=== PATIENT | female | born 1995 ===

== ENCOUNTER → 2017-05-12 | Outpatient (CLI) | payer MEDICAID ==
[~2017-05-12] MED LIST: RT-ALBUINH IH
--- NOTE | 2017-05-12 13:19 | Diagnostic Imaging Report ---
PROCEDURE: CT head without contrast. TECHNIQUE: Multiple contiguous axial images were obtained through the brain without the use of intravenous contrast. INDICATION: Headache after concussion. COMPARISON: None available. FINDINGS: No hyperdense hemorrhage, hydrocephalus, or midline shift. There is an ovoid mass in the middle cranial fossa on the right, located anterior to the temporal lobe and measuring 3.0 x 1.3 cm. No evidence of acute territorial infarct. No vasogenic edema adjacent to the right middle cranial fossa mass. No acute skull fracture. Paranasal sinuses and mastoid air cells are clear. IMPRESSION: 1. No intracranial hemorrhage or skull fracture. 2. Incidental note of a benign-appearing arachnoid cyst in the right middle cranial fossa. This results in no significant mass effect and a nonemergent MRI can be performed to confirm this finding. Dictated by: Dictated on workstation # [id number]
== END ==
LOC: RAD 12:55
PROVIDERS: ATTEND Internal Medicine
DX: S06.0X9A Concussion with loss of consciousness of unspecified duration, initial encounter (principal)
CPT/HCPCS: 70450

== ENCOUNTER 2018-05-27 15:36 | Day surgery (SDC) | payer MEDICAID ==
[~2018-05-27] VITALS: Ht 172.7 cm; Wt 66.2 kg
[2018-05-27] MEDS ORDERED: CEPH500C PO (16:12)
[2018-05-27 16:17] VITALS: BP 126/82
[2018-05-27] MEDS: LACTATED RINGERS 1,000 ML IV PRN ×2 (16:25→19:07)
[2018-05-27 16:26] LABS: BASOPHILS % (AUTO) 0 % (0-10); EOSINOPHILS # (AUTO) 0.1 10^3/uL (0.0-0.3); EOSINOPHILS % (AUTO) 0 % (0-10); HEMATOCRIT 39 % (35-52); HEMOGLOBIN 13.4 G/DL (11.5-16.0); LYMPHOCYTES # (AUTO) 1.5 X 10^3 (1.0-4.0); LYMPHOCYTES % (AUTO) 9 % (12-44); MEAN CORPUSCULAR HEMOGLOBIN 31 PG (25-34); MEAN CORPUSCULAR HGB CONC 34 G/DL (32-36); MEAN CORPUSCULAR VOLUME 90 FL (80-99); MEAN PLATELET VOLUME 9.1 FL (7.4-10.4); MONOCYTES # (AUTO) 1.5 X 10^3 (0.0-1.0); MONOCYTES % (AUTO) 9 % (0-12); NEUTROPHILS % (AUTO) 81 % (42-75); PLATELET COUNT 309 10^3/uL (130-400); RED CELL DISTRIBUTION WIDTH 14.8 % (10.0-14.5); WHITE BLOOD COUNT 16.1 10^3/uL (4.3-11.0)
[2018-05-27] MEDS ORDERED: metroNIDAZOLE 500MG/100ML IVPB 100 ML IV ONE (16:30)
[2018-05-27] MEDS ORDERED: LEVOFLOXACIN 250 MG/50 ML IVPB 50 ML IV ONE (16:30)
[2018-05-27] MEDS ORDERED: KETOROLAC 30 MG/ML VIAL IV ONE (16:30)
--- NOTE | 2018-05-27 16:44 | Progress Note-Pre Operative ---
Pre-Operative Progress Note H&P Reviewed The H&P was reviewed, patient examined and no changes noted. Date Seen by Provider: May 27, 2018 Time Seen by Provider: 16:43 Date H&P Reviewed: May 27, 2018 Time H&P Reviewed: 16:43 Pre-Operative Diagnosis: RIGHT BARTHOLIN ABSCESS ELMIRA GRANADO MD May 27, 2018 16:44
[2018-05-27] MEDS ORDERED: ONDANSETRON 4 MG/2 ML (SDV) Z0FRAN ONE ×2 (16:45→17:29)
[2018-05-27] MEDS ORDERED: DEXAMETHASONE 10 MG/ML (DECADRON) 1 ML VIAL ONE (16:45)
[2018-05-27] MEDS ORDERED: proPOfol 200 MG/20 ML (DIPRIVAN) VIAL IV ONE (16:45)
[2018-05-27] MEDS ORDERED: LIDOCAINE PF 2% 5 ML (XYLOCAINE) VIAL ONE (16:45)
[2018-05-27] MEDS ORDERED: KETOROLAC 30 MG/ML VIAL IVP ONE (16:45)
[2018-05-27] MEDS ORDERED: MEPERIDINE (DEMEROL) INJ 100 MG/ML IM ONE (16:45)
[2018-05-27] MEDS ORDERED: SEVOFLURANE (ULTANE) 15 ML INHAL SOLN ONE ×2 (16:45→17:22)
[2018-05-27] MEDS ORDERED: oxyCODONE/APAP 5/325MG (PERCOCET 5) TABLET PO PRN (16:45)
[2018-05-27] MEDS ORDERED: ONDANSETRON 4 MG/2 ML (SDV) Z0FRAN IVP PRN ×2 (16:45→17:45)
[2018-05-27] MEDS ORDERED: D5 LR IV SOLUTION 1,000 ML IV SCH (16:45)
[2018-05-27] MEDS ORDERED: PROMETHAZINE INJ 25 MG/ML (PHENERGAN) AMP IM ONE (16:45)
--- NOTE | 2018-05-27 16:45 | Progress Note-Post Operative ---
Post-Operative Progess Note Surgeon (s)/Principal Electrical Engineer (s) Surgeon ELMIRA GRANADO MD Principal Electrical Engineer: NONE Pre-Operative Diagnosis RIGHT BARTHOLIN ABSCESS Post-Operative Diagnosis Same with pathology ( culture results ) pending Procedure & Operative Findings Date of Procedure 05/27/18 Procedure Performed/Findings Marsupialization of right Bartholin abscess Anesthesia Type GETA Estimated Blood Loss Estimated blood loss (mL): Minimal Specimens/Packing Specimens Removed Culture of abscess cavity for aerobes and anaerobes Packing: None ELMIRA GRANADO MD May 27, 2018 16:45
[2018-05-27] MEDS ORDERED: MIDAZOLAM 2 MG/2 ML (VERSED) VIAL ONE (16:46)
[2018-05-27] MEDS ORDERED: fentaNYL INJECTION 100 MCG/2 ML AMP ONE ×2 (16:46→17:11)
[2018-05-27] MEDS ORDERED: OXYC1TAB87 PO (16:49)
[2018-05-27] MEDS ORDERED: CIPR500S2 PO (16:49)
[2018-05-27] MEDS ORDERED: METR500T PO (16:49)
--- NOTE | 2018-05-27 16:50 | Discharge Instructions ---
Discharge Instructions Discharge Medications New, Converted or Re-Newed RX: RX on Chart Patient Instructions Patient Instructions: As directed Return to The Hospital For: As directed Activity & Diet Discharge Diet: No Restrictions Activity as Tolerated: No Orders-Post D/C & Referrals Follow Up Appt: Call to make follow up appt. for patient in 1 weeks. Activity: Rest for 24 hours, than as tolerated. Diet: As tolerated-Clear Liquids only if nauseated. shower or tub bathe as desired. No driving for 24 hours, no alcoholic beverages for 24 hours, and nothing per vagina (no tampons, douching, or intercourse) for 1 weeks. Patient to return to the clinic as soon as possible for: Temperature greater than 101F, Severe Pain, Foul discharge from incision or vagina, Excessive Bleeding (more than a period). ELMIRA GRANADO MD May 27, 2018 16:50
[2018-05-27 17:00] LABS: BAND NEUTROPHILS 1 %; BASOPHILS % (MANUAL) 0 %; EOSINOPHILS % (MANUAL) 1 %; LYMPHOCYTES % (MANUAL) 11 %; MONOCYTES % (MANUAL) 6 %; NEUTROPHILS % (MANUAL) 81 %; RBC MORPH NORMAL
[2018-05-27] MEDS ORDERED: morphine INJ 10 MG/ML 1ML (SYR OR VIAL) ONE (17:29)
--- NOTE | 2018-05-27 17:36 | Anesthesia-General Post-Op ---
General Patient Condition Mental Status/LOC: Same as Preop Cardiovascular: Satisfactory Nausea/Vomiting: Absent Respiratory: Satisfactory Pain: Controlled Complications: Absent Post Op Complications Complications None Follow Up Care/Instructions Patient Instructions None needed. Anesthesia/Patient Condition Patient Condition Patient is doing well, no complaints, stable vital signs, no apparent adverse anesthesia problems. No complications reported per nursing. REMBERTO PRUITT CRNA May 27, 2018 17:36
[2018-05-27] MEDS ORDERED: morphine INJ 10 MG/ML 1ML (SYR OR VIAL) IVP ONE (17:45)
--- NOTE | 2018-05-27 18:30 | NUR ---
pt transferred to room 305 via bed with PACU staff @ side. bedside report received from Alysia Adkins RN. care assumed of pt.
[2018-05-27 18:47] VITALS: BP 114/69
--- NOTE | 2018-05-27 18:47 | NUR ---
vs taken. pt reports mild pain, rating @ 3 on 1-10 scale.
--- NOTE | 2018-05-27 19:10 | NUR ---
report given to next shift.
--- NOTE | 2018-05-27 21:55 | NUR ---
Assist patient up to bathroom at this time. Positive void of 500mL achieved. Patient steady on feet, denies dizziness. Pericare provided, fresh pad in place. Ambulated back to bed without issue. Patient wanting to rest, poc reviewed and call light within reach. Will continue to monitor.
[2018-05-28 00:15] VITALS: BP 100/66
[2018-05-28 03:38] VITALS: BP 100/57
--- NOTE | 2018-05-28 07:45 | NUR ---
DR. GRANADO AT PT'S BEDSIDE. POC DISCUSSED, PT DISCHARGING THIS AM. IV FLUIDS STOPPED, IV DC'D; SEE INTERVENTION FOR FURTHER. WILL GATHER DISCHARGE PAPERS.
--- NOTE | 2018-05-28 07:49 | Progress Note-Standard ---
Standard Progress Note Progress Notes/Assess & Plan Date Seen by a Provider: May 28, 2018 Time Seen by a Provider: 07:48 Progress/Assessment & Plan Patient without complaint. She is ambulating, voiding, tolerating oral intake well has good pain control. Patient denies chest pain, denies shortness breath , denies nausea vomiting, denies headache. Vital Signs Date Time Temp Pulse Resp B/P (MAP) Pulse Ox O2 Delivery O2 Flow Rate FiO2 05/28/18 03:38 97.9 64 18 100/57 (71) 98 Room Air 05/28/18 00:15 97.6 66 18 100/66 (77) 100 Room Air 05/27/18 18:47 98.1 77 18 114/69 (84) 100 Room Air 05/27/18 16:17 97.6 88 18 126/82 (97) 100 Room Air I & O 05/28/18 07:00 Intake Total 1150 ml Balance 1150 ml Vital signs are stable. Patient is afebrile. Laboratory Tests Test 05/27/18 16:05 Range/Units White Blood Count 16.1 H 4.3-11.0 10^3/uL Red Blood Count 4.35 4.35-5.85 10^6/uL Hemoglobin 13.4 11.5-16.0 G/DL Hematocrit 39 35-52 % Mean Corpuscular Volume 90 80-99 FL Mean Corpuscular Hemoglobin 31 25-34 PG Mean Corpuscular Hemoglobin Concent 34 32-36 G/DL Red Cell Distribution Width 14.8 H 10.0-14.5 % Platelet Count 309 130-400 10^3/uL Mean Platelet Volume 9.1 7.4-10.4 FL Neutrophils (%) (Auto) 81 H 42-75 % Lymphocytes (%) (Auto) 9 L 12-44 % Monocytes (%) (Auto) 9 0-12 % Eosinophils (%) (Auto) 0 0-10 % Basophils (%) (Auto) 0 0-10 % Neutrophils # (Auto) 13.0 H 1.8-7.8 X 10^3 Lymphocytes # (Auto) 1.5 1.0-4.0 X 10^3 Monocytes # (Auto) 1.5 H 0.0-1.0 X 10^3 Eosinophils # (Auto) 0.1 0.0-0.3 10^3/uL Basophils # (Auto) 0.0 0.0-0.1 10^3/uL Neutrophils % (Manual) 81 % Lymphocytes % (Manual) 11 % Monocytes % (Manual) 6 % Eosinophils % (Manual) 1 % Basophils % (Manual) 0 % Band Neutrophils 1 % Blood Morphology Comment NORMAL Patient's abdomen is benign Extremities show no clubbing or cyanosis. There is no Homans sign. Assessment and plan postoperative day number 1 status post marsupialization of right Bartholin abscess. Patient is doing well will be discharged home with follow-up in clinic Final Diagnosis Right Bartholin abscess ELMIRA GRANADO MD May 28, 2018 07:49
--- NOTE | 2018-05-28 07:50 | NUR ---
DISCHARGE PAPERS PROVIDED AND REVIEWED WITH PT, PT VERBALIZES UNDERSTANDING AND DENIES ANY QUESTIONS AT THIS TIME. PAPER SIGNED. RX X3 PROVIDED AND PLACED INTO DISCHARGE FOLDER. PT TO CHANGE INTO OWN CLOTHES AND NOTIFY THIS RN WHEN SHE IS READY TO LEAVE, PT VERBALIZES UNDERSTANDING.
--- NOTE | 2018-05-28 07:58 | NUR ---
PT DISCHARGED FROM -305 TO PERSONAL AUTO VIA AMBULATORY IN STABLE CONDITION ACC BY THIS RN. BELONGINGS IN HAND.
--- NOTE | 2018-05-28 08:15 | OPERATIVE REPORT ---
DATE OF SERVICE: 05/27/2018 PREOPERATIVE DIAGNOSIS: Right Bartholin abscess. POSTOPERATIVE DIAGNOSIS: Right Bartholin abscess. OPERATIVE PROCEDURE: Marsupialization of a right Bartholin abscess. OPERATIVE DESCRIPTION: With the patient in supine position under satisfactory general anesthesia, she was repositioned in dorsal lithotomy position in the [facility] cane stirrups and prepped and draped in the usual fashion for vaginal surgery. The patient had a large fluctuant cystic mass in the inferior margin of the right labia majora approximately 3 x 4 cm in diameter. There was surrounding erythema and a very slight induration. This was consistent with a Bartholin abscess. It was marsupialized by placing first 2 sutures of 3-0 Vicryl Rapide into and out of the cyst tagging both of those sutures and then incising wall of the cyst and the skin between those sutures. The midportion of the suture was brought out through the incision cut in the middle and then tagged and held along. Basically tagged in the four cardinal locations on the cyst anterior, posterior, left and right lateral. An additional suture of 3-0 Vicryl Rapide was now used to suture the cyst wall to the skin and between each of the 4 existing sites effectively marsupializing the defect. The sutures were cut short. Sutures of 2-0 Vicryl Rapide were used to retract the labia majora the posterior fourchette skin and the labia minora on the right and left to gain exposure to the Bartholin mass. The incision had made just distal to the hymenal ring on the right. A culture was obtained of the cyst pocket. Once it was opened and it was sent for cultures and sensitivities. The patient has been started empirically on Cipro and Flagyl and will continue on those until follow up in clinic with strict return to clinic precautions. The patient tolerated the procedure well. Estimated blood loss was minimal. Sponge and needle counts were correct on completion of the procedure. The patient tolerated the procedure well and was uneventfully was awakened from general anesthesia and transferred to the recovery room in stable condition with plans for discharge home PAR. Job ID: [id number] DocumentID: [id number] Dictated Date: 05/27/2018 17:25:36 Sponge Buffer Date: 05/28/2018 03:30:25 Dictated By: ELMIRA GRANADO MD
== END 2018-05-28 07:58 | disposition home or self-care (01) ==
LOC: SDC 15:36 → WS 18:30 → SDC 05-28 07:58
PROVIDERS: ATTEND Obstetrics & Gynecology
DX: N75.1 Abscess of Bartholin's gland (principal)
CPT/HCPCS: 36415; 85007; 85027; 87070; 87075; 87081; 87205